=== PATIENT | female | born 1960 | race African-American/Black ===

== ENCOUNTER 2017-09-21 12:46 | Emergency (ER) ==
[2017-09-21 13:02] VITALS: TEMP 96.2; BMI 36.7
--- NOTE | 2017-09-21 16:10 | ED.PDOC ---
General ED Provider: Dr. MALIKA STEIN Chief Complaint: Chest Wall Injury/Pain Stated Complaint: Chest Pain onset yesterday morning. Acute onset, short lived and localized in Rt Costalsternal region 3-4. Denies radiating symptoms. Denies nausea, vomiting. Experienced single episode of pain in Rt arm and forearm but fleeting. Spoke with PCP Dr Gasca yesterday who advised to come to ER but patient decided to wait until today. No prior hx of cardiovascular diseas in family or self Time Seen by Physician: 15:10 Mode of Arrival: Walk-In Information Source: Patient Exam Limitations: No limitations Primary Care Provider: MALIKA GASCA Referred to ED by: PCP (Dr Magana ), Other Nursing and Triage Documentation Reviewed and Agree: Yes Reviewed sepsis parameters & appropriate labs ordered?: Yes System Inflammatory Response Syndrome: Not Applicable Sepsis Protocol: For patient's 13 years and over: Temp is 96.8 and below OR 101 and greater Pulse >90 BPM Resp >20/minute Acutely Altered Mental Status Are patient's symptoms suggestive of a new infection, such as: -Pneumonia -Skin, Soft Tissue -Endocarditis -UTI -Bone, Joint Infection -Implantable Device -Acute Abdominal Infection -Wound Infection -Meningitis -Blood Stream Catheter Infection -Unknown Review of Systems - Review Of Systems Constitutional: Reports: No symptoms Eyes: Reports: No symptoms Ears, Nose, Mouth, Throat: Reports: No symptoms Respiratory: Reports: No symptoms Cardiac: Reports: Chest pain. Denies: Irregular heart rate, Lightheadedness, Palpitations, Syncope GI: Reports: No symptoms. Denies: Abdomen distended, Abdominal pain : Reports: No symptoms Musculoskeletal: Reports: No symptoms, Other (chest wall pain`) Skin: Reports: No symptoms Neurological: Reports: No symptoms Endocrine: Reports: No symptoms Hematologic/Lymphatic: Reports: No symptoms All Other Systems: Reviewed and Negative Past Medical History - Past Medical History Previously Healthy: Yes Endocrine: Reports: None Cardiovascular: Reports: None Respiratory: Reports: None Hematological: Reports: None Gastrointestinal: Reports: None Genitourinary: Reports: None Neuro/Psych: Reports: None Musculoskeletal: Reports: None Cancer: Reports: None - Surgical History General Surgical History: Reports: None - Family History Family History: Reports: None - Social History Smoking Status: Never smoker Hx Substance Use: No Alcohol Screening: None Lives: With family Physical Exam - Physical Exam Appearance: Well-appearing, No pain distress, Obese Ill-appearing: Mild Pain Distress: Mild Eyes: JOHN, EOMI, Conjunctiva clear ENT: Ears normal Neck: Supple Respiratory: Airway patent Cardiovascular: RRR, Pulses normal, No rub, No murmur, Bradycardia GI/: Soft, Nontender, No masses Musculoskeletal: Normal strength, ROM intact Skin: Warm, Dry Neurological: Sensation intact, Motor intact, Reflexes intact, Cranial nerves intact Psychiatric: Affect appropriate Re-Evaluation - Re-Evaluation Time of Re-Evaluation: 17:30 Vital Signs Stable: Yes Appearance: NAD Skin: Warm and Dry Critical Care Note - Critical Care Note Total Time (mins): 0 Comments: 0 Course - Course Hematology/Chemistry: 09/21/17 16:31 09/21/17 16:31 Orders, Labs, Meds: Lab Review 09/21/17 09/21/17 09/21/17 16:31 16:31 16:55 WBC 3.74 L RBC 3.72 L Hgb 12.1 Hct 37.3 MCV 100.3 H MCH 32.5 H MCHC 32.4 RDW Coeff of María 12.9 Plt Count 146 Immature Gran % (Auto) 0.0 Neut % (Auto) 52.0 Lymph % (Auto) 35.0 [place] % (Auto) 8.8 Eos % (Auto) 3.7 Baso % (Auto) 0.5 Immature Gran # (Auto) 0.0 Neut # 1.9 L Lymph # 1.3 [place] # 0.3 L Eos # 0.1 Baso # 0.0 Sodium 142 Potassium 3.7 Chloride 107 Carbon Dioxide 29 Anion Gap 9.7 BUN 10 Creatinine 0.73 Estimated GFR (MDRD) 100.00 BUN/Creatinine Ratio 13.69 Glucose 119 H Calcium 9.5 Total Bilirubin 0.3 AST 15 ALT 12 Alkaline Phosphatase 87 Troponin I 0.0140 Total Protein 6.9 Albumin 3.5 Globulin 3.4 Albumin/Globulin Ratio 1.03 Triglycerides 51 Cholesterol 209 H LDL Cholesterol, Calc 139 VLDL Cholesterol 10 HDL Cholesterol 60 Cholesterol/HDL Ratio 3.5 L Urine Color Yellow Urine Clarity Clear Urine pH 7.0 Ur Specific [place] 1.015 Urine Protein Negative Urine Glucose (UA) Negative Urine Ketones Negative Urine Blood Negative Urine Nitrite Negative Urine Bilirubin Negative Urine Urobilinogen 0.2 Ur Leukocyte Esterase Negative Orders Category Date Time Status EKG-(ED ONLY) Stat CARDIO 09/21/17 14:57 Completed NPO REMINDER: LAB TEST ONCE CARE 09/21/17 16:16 Completed ED CAR HOP APPLIED .ONCE EMERGENCY 09/21/17 16:15 Active Vital signs [ED VITAL SIGNS] .ONCE EMERGENCY 09/21/17 16:15 Active C-REACTIVE PROTEIN Stat LAB 09/21/17 16:31 Received CBC W/ AUTO DIFF Stat LAB 09/21/17 16:31 Completed COMPREHENSIVE METABOLIC PANEL Stat LAB 09/21/17 16:31 Completed LIPID PANEL Stat LAB 09/21/17 16:31 Completed TROPONIN I Stat LAB 09/21/17 16:31 Completed UA [URINALYSIS C & S IF INDICATED] Stat LAB 09/21/17 16:55 Completed CHEST, 2 VIEWS PA & LAT Stat RADS 09/21/17 16:18 Completed Vital Signs: Temp Pulse Resp BP Pulse Ox 09/21/17 17:32 52 L 15 147/70 H 100 09/21/17 16:27 69 15 147/56 H 97 09/21/17 12:51 96.2 F L 66 20 160/94 H 99 SIA Risk Score SIA Risk Score: Risk Score Odds of by 30D 0 0.1 (0.1-0.2) 1 0.3 (0.2-0.3) 2 0.4 (0.3-0.5) 3 0.7 (0.6-0.9) 4 1.2 (1.0-1.5) 5 2.2 (1.9-2.6) 6 3.0 (2.5-3.6) 7 4.8 (3.8-6.1) Departure - Departure Time of Disposition: 18:03 Disposition: HOME SELF-CARE Discharge Problem: Chest wall pain Instructions: Chest Wall Pain (ED) Condition: Good Pt referred to PMD for follow-up: Yes (May take Tylenol or Advil for additional pain if needed) Allergies/Adverse Reactions: Allergies No Known Allergies Allergy (Unverified 09/21/17 12:59) Home Medications: Ambulatory Orders 1 [No Reported Medications] 09/21/17
--- NOTE | 2017-09-21 17:05 | DI ---
EXAM: Chest two view, frontal and lateral views. HISTORY: Chest pain. COMPARISON: None available. FINDINGS: The heart size is normal. There is no pulmonary vascular congestion. The lungs are clear . No pleural effusion or pneumothorax is seen. No acute osseous abnormality identified. Left conve x thoracic scoliosis noted. IMPRESSION: No acute cardiopulmonary process.
[2017-09-21 18:18] VITALS: BP 154/71
== END 2017-09-21 18:22 | disposition home or self-care (01) ==
LOC: ED 12:46
DX: R07.89 Other chest pain (principal)
CPT/HCPCS: 36415; 80053; 80061; 81001; 84484; 85025; 86140; 93005; 93010; 99283

== ENCOUNTER 2017-10-03 06:19 | Outpatient (CLI) ==
--- NOTE | 2017-10-04 14:28 | ECHOSTRESS ---
Date of Exam: 10/03/17 Ordering Physician: MALIKA CAREY Reason for Echo: CHEST PAIN, STRESS TEST--NO ISCHEMIA M-Mode Normal Adult Results LV Dimensions Normal Adult Results AoV Opening excursions >1.6 LVEDD-base- 3.5-5.8 Ao root dimensions 2.0-3.7 LVESD-base- 3.1-4.6 L. Atrium dimensions 1.9-3.8 Post. Wall thickness 0.8-1.1 IV septum (thickness) 0.7-1.2 Post. Wall excursion 0.72-1.3 Septal motion Systolic motion R. Ventricular cavity 1.5-2.0 LVEF 60% Paradoxical septal wall motion 2-D: NORMAL LEFT VENTRICULAR CONTRACTILITY--RESTING AND POST EXERCISE M-MODE: MV: AV: TV: PV: CHAMBER SIZE: WALL MOTION: NORMAL LEFT VENTRICULAR CONTRACTILITY--RESTING AND POST EXERCISE PERICARDIUM: INTERPRETATION: 1. NORMAL LEFT VENTRICULAR CONTRACTILITY--RESTING AND POST EXERCISE MTDD
--- NOTE | 2017-10-04 14:36 | STRESSECHO ---
Date of Test: 10/03/17 Reason for Exam: CHEST PAIN TO LEFT ARM Ordering Physician: MALIKA CAREY Current Medications: NONE Physical Findings: S1, S2, NO S3 Resting EKG: SINUS RHYTHM/NO ACUTE CHANGES Target Heart Rate: 140/165 STAGE MPH/GRADE HEART RATE BPM BLOOD PRESSURE mmhg RHYTHM S-T SEGMENT +/- UP DOWN SYMPTOMS,COMMENTS At Rest 68 132/78 SR X NONE 1 1.7/10% 116 140/82 SR X NONE 2 2.5/12% 3 3.4/14% 4 4.2/16% 5 5.0/18% Immediately after 138 138/80 SF X SHORT OF BREATH Durations of Exercise: 5:33 Maximum Heart Rate Reached: 138 Reason for Termination: SHORT OF BREATH 5 MINUTES POST EXERCISE: HR 84 BPM, BP 132/68 MMHG, SR, +/-, NO COMPLAINTS INTERPRETATION: 95% OXYGEN SATURATION WITH EXERCISE ON ROOM AIR 1. NO EVIDENCE OF ISCHEMIA BY ST-T WAVE 2. NO CHEST PAIN OR CHEST DISCOMFORT 3. BLOOD PRESSURE RESPONSE: NORMAL 4. FEW PVC'S POST EXERCISE NORMAL LEFT VENTRICULAR CONTRACTILITY--RESTING AND POST EXERCISE MTDD
== END 2017-10-03 06:20 | disposition home or self-care (01) ==
LOC: CAR 06:19
PROVIDERS: ATTEND Family Medicine
DX: R07.9 Chest pain, unspecified (principal)